=== PATIENT | female | born 1970 | race Caucasian/White ===

== ENCOUNTER 2017-01-05 21:41 | Emergency (ER) | payer OTHER ==
[~2017-01-05] VITALS: Ht 152.4 cm; Wt 80.7 kg
[~2017-01-05 21:41] MED LIST: LIPI10 PO; MECLIZINE HYD12.5 MG PO; MECLIZINE HYDRO25 M1 PO; ZES10 PO
[2017-01-06 01:23] VITALS: BP 138/87
== END 2017-01-06 01:01 | disposition home or self-care (01) ==
LOC: ED 21:41
DX: M70.861 Other soft tissue disorders related to use, overuse and pressure, right lower leg (principal)

== ENCOUNTER 2017-07-31 19:27 | Emergency (ER) | payer OTHER ==
[~2017-07-31] VITALS: Ht 165.1 cm; Wt 78.5 kg
[2017-07-31 19:47] VITALS: Ht 165.1 cm; Wt 78.5 kg
[2017-07-31 21:08] VITALS: BP 134/79
== END 2017-07-31 21:08 | disposition left against medical advice (07) ==
LOC: ED 19:27
DX: Z53.21 Procedure and treatment not carried out due to patient leaving prior to being seen by health care provider (principal)

== ENCOUNTER 2019-05-11 10:00 | Emergency (ER) | payer OTHER ==
[~2019-05-11] VITALS: Ht 165.1 cm; Wt 80.3 kg
[2019-05-11 10:12] VITALS: Ht 165.1 cm; Wt 80.3 kg
[2019-05-11 12:38] VITALS: BP 115/86
== END 2019-05-11 12:38 | disposition home or self-care (01) ==
LOC: ED 10:00
DX: J11.1 Influenza due to unidentified influenza virus with other respiratory manifestations (principal); E78.00 Pure hypercholesterolemia, unspecified
CPT/HCPCS: 87804

== ENCOUNTER 2020-01-01 22:28 | Emergency (ER) | payer OTHER ==
[~2020-01-01] VITALS: Ht 160 cm; Wt 79.4 kg
[2020-01-01 22:38] VITALS: Ht 160 cm; Wt 79.4 kg
[2020-01-02 00:53] VITALS: BP 135/83
== END 2020-01-02 00:54 | disposition home or self-care (01) ==
LOC: ED 22:28
DX: R07.89 Other chest pain (principal); I10 Essential (primary) hypertension; E78.00 Pure hypercholesterolemia, unspecified